=== PATIENT | female | born 1955 | race Caucasian/White ===

== ENCOUNTER 2020-06-26 16:32 | Emergency (ER) | payer OTHER ==
[2020-06-26] MEDS ORDERED: ALUM & MAG HYDROX-SIMETHICONE 30 ML, LIDOCAINE VISCOUS 2% 15 ML PO ONE ×2 (16:50)
[2020-06-26] MEDS ORDERED: ONDANSETRON ODT 8 MG TAB SL ONE (16:50)
[2020-06-26 17:11] VITALS: TEMP 96.2
--- NOTE | 2020-06-26 17:37 | RAD ---
EXAM: XR Abdomen, 2 Views and XR Chest, 1 View CLINICAL HISTORY: acute onset abd pain with nv TECHNIQUE: Frontal view of the chest, frontal view of the abdomen/pelvis and upright or decubitus view of the abdomen. COMPARISON: No relevant prior studies available. FINDINGS: Limitations: None. Lungs: Visualized portions appear normal. Pleural space: No abnormality noted. Heart: No abnormality noted. Mediastinum: Normal contour. No abnormality noted. Intraperitoneal space: No free air. Gastrointestinal tract: Small amounts of air noted in the stomach and right colon. The abdomen is otherwise relatively gasless. Organs: Visualized organ shadows appear grossly normal. Bones/joints: No acute change noted. IMPRESSION: 1. Nonspecific, nonobstructive intestinal gas pattern. 2. No acute cardiopulmonary disease noted. Electronically signed by: Mariah Kearns MD 06/26/2020 5:35 PM CDT
[2020-06-26] MEDS ORDERED: NITROGLYCERIN 0.4 MG 25 EA TAB SL ONE ×2 (17:49→17:50)
[2020-06-26] MEDS ORDERED: ASPIRIN TABLET 325 MG TAB PO ONE (17:52)
[2020-06-26] MEDS ORDERED: ENOXAPARIN SODIUM 60 MG/0.6 ML SYG SUBCU ONE (17:56)
[2020-06-26 18:16] VITALS: BP 182/97; O2SAT 99
--- NOTE | 2020-06-26 18:20 | ED.PDOC ---
History of Present Illness - General Chief Complaint: Abdominal Pain Stated Complaint: CLARK,epigastric pain,diaphoretic Time Seen by Provider: 06/26/20 16:35 Source: patient Exam Limitations: no limitations - History of Present Illness Initial Comments: The patient is a 65-year-old female presented emergency room secondary to fairly acute onset chest pain about 2 hours prior to arrival. She had a similar episode about 2 weeks ago that lasted several hours. Chest pain was associated with some nausea. Mild shortness of breath. No radiation to the jaw. Mild right-sided arm pain. Pain is a 6 or 7 out of 10 currently. It is something of a burning squeezing sensation. No history of any coronary artery disease in the past. The patient is a . She does have a history of hypothyroidism, hypertension and apparently untreated reflux. Patient reports that this started abruptly after drinking an orange soda. Timing/Duration: 1-3 hours Severity: moderate Improving Factors: nothing Worsening Factors: nothing Associated Symptoms: chest pain, nausea/vomiting Allergies/Adverse Reactions: Allergies Fluoxetine [From Prozac] Allergy (Verified 06/26/20 17:00) Metoclopramide [From Reglan] Allergy (Verified 06/26/20 17:00) Promethazine [From Phenergan] Allergy (Verified 06/26/20 17:00) Sertraline [From Zoloft] Allergy (Verified 06/26/20 17:00) Sulfamethoxazole w/Trimethoprim [From Bactrim] Allergy (Verified 06/26/20 17:00) Home Medications: Ambulatory Orders Atenolol [Tenormin] 50 mg PO BID 06/26/20 Levothyroxine Sodium [Synthroid] 100 mcg PO DAILY 06/26/20 Meloxicam [Mobic] 7.5 mg PO DAILY 06/26/20 Review of Systems - Review of Systems Constitutional: States: no symptoms reported EENTM: States: no symptoms reported Respiratory: States: no symptoms reported Cardiology: States: see HPI Gastrointestinal/Abdominal: States: no symptoms reported Genitourinary: States: no symptoms reported Musculoskeletal: States: no symptoms reported Skin: States: no symptoms reported Neurological: States: no symptoms reported Endocrine: States: no symptoms reported All other Systems: No Change from Baseline Past Medical History (General) - Patient Medical History Hx Stroke: No Hx Congestive Heart Failure: No Hx Hypertension: Yes Hx Diabetes: No Surgical History: Hysterectomy - Vaccination History Hx Influenza Vaccination: No Hx Pneumococcal Vaccination: No - Social History Hx Tobacco Use: No Family Medical History - Family History Mother Family History: Unknown Living Status: Unknown Physical Exam - Physical Exam General Appearance: Alert, Anxious Eye Exam: bilateral normal Ears, Nose, Throat: hearing grossly normal, normal pharynx Neck: full range of motion, supple Respiratory: lungs clear, normal breath sounds, no respiratory distress, no accessory muscle use Cardiovascular/Chest: normal peripheral pulses, regular rate, rhythm, no edema Peripheral Pulses: radial,right: 2+, radial,left: 2+, dorsalis pedis,right: 2+, dorsalis pedis,left: 2+ Gastrointestinal/Abdominal: non tender, soft Rectal Exam: deferred Back Exam: no CVA tenderness, no vertebral tenderness Extremity: normal range of motion, non-tender, normal inspection, no pedal edema, normal capillary refill Neurologic: system specialist II-XII nml as tested, alert, normal mood/affect, oriented x 3 Skin Exam: normal color Comments: Vital Signs - 24 hr 06/26/20 06/26/20 06/26/20 17:02 17:26 18:16 Temperature 96.2 F L Pulse Rate [ 60 60 63 Right Brachial] Respiratory 16 16 18 Rate Blood Pressure 174/110 182/97 [Right Arm] O2 Sat by Pulse 100 99 Oximetry Progress - Progress Progress: 06/26/20 18:20 The patient is a 65-year-old female presented emergency room with what appears to be a early non-ST elevation myocardial infarction. EKG showing no obvious acute changes at this point. We offered the patient blood thinners, nitroglycerin, aspirin at this point. She is refusing medications. She is refusing transfer to higher level of care. She is refusing admission here. The patient has been explained the consequences of not having a heart attack treated. The patient is still leaving AGAINST MEDICAL ADVICE. I do want her to follow-up with her primary care doctor soon as possible. In the interim I do want her to also take a full dose aspirin daily. The patient is to return to the emergency room for any significant worsening. The patient is still having chest pain at this time. galdino edward [phone] - Results/Orders Results/Orders: Acute abdominal series shows no acute pathology. EKG shows normal sinus bradycardia. Right axis deviation. Criteria for LVH. No definitive ST segment or T wave changes indicative of acute ischemia. Normal QT interval. Laboratory Tests 06/26/20 06/26/20 06/26/20 17:23 17:23 17:23 WBC 7.0 RBC 5.01 Hgb 14.7 Hct 42.7 MCV 85.2 MCH 29.3 MCHC 34.4 RDW 13.5 Plt Count 298 MPV 8.0 Absolute Neuts (auto) 4.90 Absolute Lymphs (auto) 1.40 Absolute Monos (auto) 0.50 Absolute Eos (auto) 0.10 Absolute Basos (auto) 0.10 Neutrophils % 70.5 Lymphocytes % 20.4 Monocytes % 6.7 Eosinophils % 1.1 Basophils % 1.3 PT 10.2 INR 1.03 PTT (SP) 25.2 Sodium 133 L Potassium 3.5 L Chloride 95 L Carbon Dioxide 26 Anion Gap 15.5 BUN 11 Creatinine 0.85 BUN/Creatinine Ratio 12.9 Random Glucose 112 H Serum Osmolality 266.5 L Calcium 9.4 Magnesium 2.0 Total Bilirubin 0.7 AST 24 ALT 14 Alkaline Phosphatase 83 Creatine Kinase 125 CK-MB (CK-2) 5.1 H* CK-MB (CK-2) % Not Reportable Troponin I 0.15 H* B-Natriuretic Peptide 142.0 H Serum Total Protein 8.0 Albumin 4.7 Globulin 3.3 Albumin/Globulin Ratio 1.4 Amylase 63 Lipase 29 TSH 0.97 Urine Color Urine Appearance Urine pH Ur Specific [place] Urine Protein Urine Glucose (UA) Urine Ketones Urine Blood Urine Nitrite Urine Bilirubin Urine Urobilinogen Ur Leukocyte Esterase Urine RBC Urine WBC Ur Epithelial Cells Urine Bacteria Urine Mucus 06/26/20 17:50 WBC RBC Hgb Hct MCV MCH MCHC RDW Plt Count MPV Absolute Neuts (auto) Absolute Lymphs (auto) Absolute Monos (auto) Absolute Eos (auto) Absolute Basos (auto) Neutrophils % Lymphocytes % Monocytes % Eosinophils % Basophils % PT INR PTT (SP) Sodium Potassium Chloride Carbon Dioxide Anion Gap BUN Creatinine BUN/Creatinine Ratio Random Glucose Serum Osmolality Calcium Magnesium Total Bilirubin AST ALT Alkaline Phosphatase Creatine Kinase CK-MB (CK-2) CK-MB (CK-2) % Troponin I B-Natriuretic Peptide Serum Total Protein Albumin Globulin Albumin/Globulin Ratio Amylase Lipase TSH Urine Color Yellow Urine Appearance Clear Urine pH 7.0 Ur Specific [place] 1.020 Urine Protein 100 H Urine Glucose (UA) Negative Urine Ketones Negative Urine Blood Trace-lysed H Urine Nitrite Negative Urine Bilirubin Negative Urine Urobilinogen 0.2 Ur Leukocyte Esterase Negative Urine RBC 0-1 Urine WBC 3-5 H Ur Epithelial Cells 1-3 Urine Bacteria Rare Urine Mucus Trace Departure - Departure Clinical Impression: NSTEMI (non-ST elevated myocardial infarction) Disposition: Left Against Medical Advice Condition: Serious Departure Forms: ED Discharge - Pt. Copy, Patient Portal Self Enrollment Instructions: DI for Abdominal Pain-Adult, Heart Attack in Women (DC) Diet: low fat, low cholesterol Activity: no exercise Referrals: DENA DIALLO [Primary Care Provider] - 1-2 Weeks Home Medications: Ambulatory Orders Atenolol [Tenormin] 50 mg PO BID 06/26/20 Levothyroxine Sodium [Synthroid] 100 mcg PO DAILY 06/26/20 Meloxicam [Mobic] 7.5 mg PO DAILY 06/26/20 Additional Instructions: The patient is having a heart attack. She is refusing treatment, admission or transfer. She does need to take an aspirin daily. She needs to return to the emergency room for any worsening. The potential consequences of her actions have been explained. The patient is leaving AGAINST MEDICAL ADVICE.
== END 2020-06-26 18:28 | disposition left against medical advice (07) ==
LOC: ER 16:32
DX: I21.4 Non-ST elevation (NSTEMI) myocardial infarction (principal); Z53.29 Procedure and treatment not carried out because of patient's decision for other reasons; I10 Essential (primary) hypertension; E03.9 Hypothyroidism, unspecified
CPT/HCPCS: 36415; 74019; 80053; 81001; 82150; 82550; 82553; 83690; 83735; 83880; 84443; 84484; 85025; 85379; 85610; 85730; 93005; J1650

== ENCOUNTER → 2020-08-01 | Outpatient (CLI) | payer OTHER ==
--- NOTE | 2020-08-01 13:48 | CT ---
EXAM DESCRIPTION: CT ABDOMEN AND PELVIS WITHOUT AND WITH CONTRAST CLINICAL HISTORY: R10.9. Abdominal pain. COMPARISON: CT abdomen and pelvis 09/30/2008. TECHNIQUE: CT of the abdomen and pelvis are performed prior to and during IV bolus intravenous contrast. No oral contrast was given. Delayed phase imaging was obtained. FINDINGS: Mild left lung base subsegmental atelectasis. Small sliding hiatal hernia, unchanged. The liver is normal in size and enhancement. No focal hepatic lesion. The gallbladder is normal without calcified gallstones. The spleen is normal in size. The pancreas and adrenals enhance normally. No adrenal nodule. The bilateral kidneys are normal in size, contour, and enhancement. No hydronephrosis, nephrolithiasis, or perinephric fluid collection. No renal mass. The ureters are normal in caliber without stone or obstruction. No focal urothelial lesion identified. Mild constipation. No focal bowel wall thickening or bowel obstruction. The appendix is not visualized. Tiny left fat-containing inguinal hernia. No free fluid within the pelvis. The partially distended bladder is normal in appearance. No focal bladder wall thickening. The uterus is surgically absent. No lymphadenopathy. Mild dextrocurvature curvature of the lumbar spine. No acute osseous abnormality. IMPRESSION: 1. No acute abdominopelvic process on CT. 2. Small hiatal hernia. 3. Mild constipation. 4. Hysterectomy. This exam was performed according to our departmental dose-optimization program, which includes automated exposure control, adjustment of the mA and/or kV according to patient size and/or use of iterative reconstruction technique. Electronically signed by: Jef Roblero DO 08/01/2020 1:[address] [facility]
== END ==
LOC: CT 09:02
PROVIDERS: ATTEND Emergency Medicine
DX: K44.9 Diaphragmatic hernia without obstruction or gangrene (principal); K59.00 Constipation, unspecified; Z90.710 Acquired absence of both cervix and uterus